=== PATIENT | female | born 1985 | race African-American/Black ===

== ENCOUNTER 2017-06-29 07:43 | Emergency (ER) | payer OTHER, MEDICAID ==
[~2017-06-29] VITALS: Ht 167.6 cm; Wt 145.0 kg
[~2017-06-29 07:43] MED LIST: ERYTOIN10 RIGHT EYE; LISI-515 PO; MAXI5O EACH EYE
[2017-06-29 07:44] VITALS: BP 179/108; PULSE 100; RESP 14; TEMP 98.4; O2SAT 96
--- NOTE | 2017-06-29 08:04 | PD ---
HPI Chief Complaint: ENT Complaint Time Seen by Provider: 07:59 Travel History International Travel<30 days: No Contact w/Intl Traveler<30days: No Traveled to known affect area: No History of Present Illness HPI 31-year-old female presents to the emergency department for evaluation of right ear pain that started yesterday. Patient states the pain is throbbing with radiation right in front of the right ear. She rates the pain 10/10 without associated symptoms. No fevers or chills. No cough or congestion. She denies history of ear infections. No drainage from the ear. She reports history of hypertension and takes lisinopril. No other medical problems. Mild severity. PFSH Past Medical History Heart Rhythm Problems: No Cardiac Catheterization: No Cardiovascular Problems: Yes High Cholesterol: No Congestive Heart Failure: No Diabetes: No Diminished Hearing: No Hypertension: Yes Immunizations Current: Yes (HEPATITIS) Myocardial Infarction: No ?: Not : 2 Para: 1 Past Surgical History Coronary Artery Bypass Graft: No Tonsillectomy: Yes Other Surgery: Yes (CYST IN SINUS TRAC) Family History Family Myocardial Infarction: Yes Social History Alcohol Use: Yes (X1 PER MONTH/1 GLASS) Tobacco Use: No Substance Use: No Allergies-Medications (Allergen,Severity, Reaction): Coded Allergies: Sulfa (Sulfonamide Antibiotics) (Unverified Allergy, Severe, RASH, ) Reported Meds & Prescriptions Reported Meds & Active Scripts Active Reported Lisinopril 20 Mg Tab 20 Mg PO DAILY Review of Systems Except as stated in HPI: all other systems reviewed are Neg Physical Exam Narrative GENERAL: Well-nourished, well-developed female patient, ambulatory. Afebrile. SKIN: Focused skin assessment warm/dry. No erythema or warm. No facial swelling. HEAD: Normocephalic. Atraumatic. ENT: Mucosa pink and moist. No erythema or exudates. No uvular edema. No uvular , palatal, or tonsillar deviation. Airway patent. Nasal turbinates appear normal without nasal blood, purulent drainage or septal hematoma. Bilateral tympanic membranes are clear without erythema or perforation. No mastoid tenderness to palpation. She does have mild tenderness over the right parotid gland. EYES: No scleral icterus. No injection or drainage. NECK: Supple, trachea midline. No JVD or lymphadenopathy. CARDIOVASCULAR: Regular rate and rhythm without murmurs, gallops, or rubs. RESPIRATORY: Breath sounds equal bilaterally. No accessory muscle use. Lungs sounds are clear to auscultation. GASTROINTESTINAL: Abdomen soft, non-tender, nondistended. MUSCULOSKELETAL: No cyanosis, or edema. Data Data Last Documented VS Vital Signs Date Time Temp Pulse Resp B/P (MAP) Pulse Ox O2 Delivery O2 Flow Rate FiO2 06/29/17 07:44 98.4 100 14 179/108 (131) 96 MDM Medical Decision Making Medical Screen Exam Complete: Yes Emergency Medical Condition: Yes Medical Record Reviewed: Yes Differential Diagnosis Otitis media versus otitis externa versus parotiditis versus eustachian tube dysfunction versus mastoiditis Narrative Course 31-year-old female presents to the emergency department for evaluation of right ear pain since yesterday. Physical exam is unremarkable. She does have mild tenderness over the right parotid gland. Otherwise, no other abnormality. Possible eustachian tube dysfunction versus parotiditis. Patient is instructed to take [id number] allergy medication, continue ibuprofen for pain, suck on sour candies. She is to follow-up with her primary care physician. She is to return here for any acute worsening of symptoms. Diagnosis Primary Impression: Earache, right Referrals: Primary Care Physician call for appointment Patient Instructions: Earache (ED), General Instructions Additional Instructions: Take haec-ndj-bwebtwn allergy medicine such as Claritin, Zyrtec, or Katarzyna daily. You do have some mild tenderness over the right parotid gland. Suck on sour candies. Follow-up with your primary care physician. Return to the emergency department for any acute worsening of symptoms. Med/Other Pt SpecificInfo: No Change to Meds Disposition: 01 DISCHARGE HOME Condition: Stable Veto,Maggi DAILEY Jun 29, 2017 08:04
[2017-06-29 08:15] VITALS: BP 109/78; TEMP 98
== END 2017-06-29 08:15 | disposition home or self-care (01) ==
LOC: NEPD 07:43
DX: H92.01 Otalgia, right ear (principal); I10 Essential (primary) hypertension
CPT/HCPCS: 99282